=== PATIENT | female | born 2000 | race Caucasian/White ===

== ENCOUNTER 2019-08-23 17:17 | Emergency (ER) | payer MEDICAID ==
[~2019-08-23] VITALS: Ht 160 cm; Wt 70.5 kg
[2019-08-23 17:25] VITALS: TEMP 97.9
[2019-08-23] MEDS ORDERED: NOVOLOG FLEX100 U/ML SQ (17:53)
[2019-08-23 18:02] LABS: COLLECTION METHOD CLEAN CATCH
[2019-08-23 18:09] LABS: PH 6 (5-8); SQUAMOUS EPITHELIAL 0-2 /hpf; URINE APPEARANCE Clear; URINE BACTERIA None Seen /hpf; URINE BILIRUBIN Negative (NEGATIVE); URINE BLOOD Negative (NEGATIVE); URINE COLOR Straw; URINE GLUCOSE 3+ (NEGATIVE); URINE KETONE Negative (NEGATIVE); URINE LEUKOCYTE ESTERASE Negative (NEGATIVE); URINE NITRATE Negative (NEGATIVE); URINE PROTEIN(semi-quant) Negative (NEGATIVE); URINE RBC 0-2 /hpf; URINE UROBILINOGEN Negative (NEGATIVE)
[2019-08-23 18:30] LABS: BASO # 0.1 (0.0-0.2); BASO % 0.5 % (0.0-2.0); EOS # 0.4 (0.0-0.7); EOS % 2.9 % (0-4.0); GRAN # 8.4 (1.4-6.5); GRAN % 57.5 % (42.2-75.2); HEMATOCRIT 41.4 % (35.0-45.0); HEMOGLOBIN 14.5 g/dl (12.0-15.0); LYMPH # 4.9 (1.2-3.4); LYMPH % 33.5 % (20.0-51.0); MEAN CELL VOLUME 90 fl (80.0-95.0); MEAN CORPUSCULAR HEMOGLOBIN 32 pg (26.0-32.0); MEAN CORPUSCULAR HGB CONC 35 g/dl (33.0-37.0); MEAN PLATELET VOLUME 9.9 fl (7.4-10.4); MONO # 0.8 (0.1-0.6); MONO % 5.3 % (1.7-9.3); PLATELET COUNT 333 K/mm3 (130-400); RED BLOOD COUNT 4.61 M/mm3 (4.10-5.30); REDCELL DISTRIBUTION WIDTH-CV 11.9 % (11.5-14.5)
[2019-08-23 18:38] LABS: ALANINE AMINOTRANSFERASE < 6 U/L (9-52); ALBUMIN 4.5 gm/dL (3.5-5.0); ALKALINE PHOSPHATASE 97 U/L (50-136); ANION GAP 13 mmol/L (7-16); AST,SGOT 18 U/L (15-37); BILIRUBIN,TOTAL 0.2 mg/dL (0.0-1.0); BLOOD UREA NITROGEN 14 mg/dL (7-17); C-REACTIVE PROTEIN 1.1 mg/dL (0.0-0.9); CALCIUM 9.9 mg/dL (8.4-10.2); CARBON DIOXIDE 20 mmol/L (22-30); CHLORIDE 100 mmol/L (98-107); CREATININE, serum 0.56 (0.52-1.25); GLUCOSE 385 mg/dL (74-106); LIPASE 47 U/L (23-300); POTASSIUM 4.1 mmol/L (3.4-5.0); SODIUM 134 mmol/L (137-145); TOTAL PROTEIN 8.2 gm/dL (6.4-8.2)
[2019-08-23 22:28] VITALS: BP 115/80; PULSE 101
== END 2019-08-23 22:28 | disposition home or self-care (01) ==
LOC: COL.ER 17:17
PROVIDERS: Physician Assistant
DX: O24.011 Pre-existing type 1 diabetes mellitus, in pregnancy, first trimester (principal); O26.891 Other specified pregnancy related conditions, first trimester; O02.81 Inappropriate change in quantitative human chorionic gonadotropin (hCG) in early pregnancy; O99.331 Smoking (tobacco) complicating pregnancy, first trimester; E10.65 Type 1 diabetes mellitus with hyperglycemia; R10.9 Unspecified abdominal pain; F17.290 Nicotine dependence, other tobacco product, uncomplicated; Z3A.00 Weeks of gestation of pregnancy not specified
CPT/HCPCS: J7030

== ENCOUNTER 2019-10-20 10:49 | Emergency (ER) | payer MEDICAID ==
[~2019-10-20] VITALS: Ht 160 cm; Wt 72.7 kg
[~2019-10-20 10:49] MED LIST: NOVOLOG FLEX100 U/ML SQ
[2019-10-20 11:07] VITALS: TEMP 98.5
[2019-10-20 13:17] LABS: BASO % 0.2 % (0.0-2.0); EOS # 0.2 (0.0-0.7); EOS % 1.3 % (0-4.0); GRAN # 8.8 (1.4-6.5); GRAN % 72.1 % (42.2-75.2); HEMOGLOBIN 12.3 g/dl (12.0-15.0); LYMPH # 2.7 (1.2-3.4); LYMPH % 21.7 % (20.0-51.0); MEAN CELL VOLUME 92 fl (80.0-95.0); MEAN CORPUSCULAR HEMOGLOBIN 31 pg (26.0-32.0); MEAN CORPUSCULAR HGB CONC 34 g/dl (33.0-37.0); MEAN PLATELET VOLUME 10.1 fl (7.4-10.4); MONO # 0.5 (0.1-0.6); MONO % 4.3 % (1.7-9.3); PLATELET COUNT 235 K/mm3 (130-400); RED BLOOD COUNT 3.93 M/mm3 (4.10-5.30); REDCELL DISTRIBUTION WIDTH-CV 11.9 % (11.5-14.5)
[2019-10-20 13:19] LABS: HEMATOCRIT 36.1 % (35.0-45.0)
[2019-10-20 13:50] LABS: ACETONE,SERUM NEGATIVE
[2019-10-20 13:56] LABS: ALANINE AMINOTRANSFERASE 12 U/L (9-52); ALBUMIN 3.5 gm/dL (3.5-5.0); ALKALINE PHOSPHATASE 48 U/L (50-136); ANION GAP 7 mmol/L (7-16); AST,SGOT 15 U/L (15-37); BILIRUBIN,TOTAL 0.2 mg/dL (0.0-1.0); BLOOD UREA NITROGEN 11 mg/dL (7-17); C-REACTIVE PROTEIN 1.4 mg/dL (0.0-0.9); CALCIUM 8.3 mg/dL (8.4-10.2); CARBON DIOXIDE 23 mmol/L (22-30); CHLORIDE 106 mmol/L (98-107); CREATININE, serum 0.51 (0.52-1.25); GLUCOSE 134 mg/dL (74-106); POTASSIUM 3.8 mmol/L (3.4-5.0); SODIUM 136 mmol/L (137-145); TOTAL PROTEIN 6.4 gm/dL (6.4-8.2)
[2019-10-20 14:25] LABS: COLLECTION METHOD CLEAN CATCH
[2019-10-20 14:36] LABS: PH 7 (5-8); URINE APPEARANCE Clear; URINE BACTERIA Rare /hpf; URINE BILIRUBIN Negative (NEGATIVE); URINE BLOOD Negative (NEGATIVE); URINE COLOR Yellow; URINE GLUCOSE 2+ (NEGATIVE); URINE KETONE 1+ (NEGATIVE); URINE LEUKOCYTE ESTERASE Negative (NEGATIVE); URINE NITRATE Negative (NEGATIVE); URINE PROTEIN(semi-quant) Negative (NEGATIVE); URINE UROBILINOGEN Negative (NEGATIVE)
[2019-10-20] MEDS ORDERED: PROMETHAZINE12.5 M5 PO (14:52)
[2019-10-20 15:20] VITALS: BP 111/61; PULSE 82
== END 2019-10-20 15:23 | disposition home or self-care (01) ==
LOC: COL.ER 10:49
PROVIDERS: Physician Assistant
DX: O21.0 Mild hyperemesis gravidarum (principal); O24.011 Pre-existing type 1 diabetes mellitus, in pregnancy, first trimester; Z3A.12 12 weeks gestation of pregnancy
CPT/HCPCS: J2405; J7030

== ENCOUNTER → 2019-11-09 | Outpatient (CLI) | payer MEDICAID ==
[~2019-11-09] MED LIST changes: +PROMETHAZINE12.5 M5 PO
== END ==
LOC: DIA.ED 08:39
DX: O24.419 Gestational diabetes mellitus in pregnancy, unspecified control (principal)
CPT/HCPCS: G0108

== ENCOUNTER → 2019-11-18 | Outpatient (CLI) | payer MEDICAID | LOC: DIA.ED 13:34 | DX: O24.419 Gestational diabetes mellitus in pregnancy, unspecified control (principal); Z79.4 Long term (current) use of insulin; E03.9 Hypothyroidism, unspecified | CPT/HCPCS: G0108 ==

== ENCOUNTER 2020-03-13 03:12 | Outpatient (CLI) | payer MEDICAID ==
[~2020-03-13] VITALS: Ht 160 cm; Wt 75.0 kg
--- NOTE | 2020-03-13 00:34 | NUR ---
0345 STATES HAS NOT HAD PAIN IN LOWER ABD SINCE ARRIVAL BUT HAS OCC IRREGULAR CONTRACTIONS. SVE 0/0/-2. 0350 ROLES NOTIFIED OF ADM ASSESSMENT, COMPLAINT AND BLOOD SUGARS. 0410 HOME WITH INSTRUCTIONS.
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
[2020-03-13 03:15] VITALS: BP 119/69; PULSE 100; TEMP 98.3
[2020-03-13] MEDS ORDERED: HUMALOG100 U/ML (03:21)
[2020-03-13] MEDS ORDERED: ZOFRAN 4MG T4 MG/TAB PO (03:22)
[2020-03-13 03:23] VITALS: BP 119/69; PULSE 100; TEMP 98.3
== END 2020-03-13 04:10 | disposition home or self-care (01) ==
LOC: LDRO 03:12
DX: O24.013 Pre-existing type 1 diabetes mellitus, in pregnancy, third trimester (principal); O26.893 Other specified pregnancy related conditions, third trimester; E10.9 Type 1 diabetes mellitus without complications; Z96.41 Presence of insulin pump (external) (internal); Z3A.32 32 weeks gestation of pregnancy; R10.9 Unspecified abdominal pain; Z86.14 Personal history of Methicillin resistant Staphylococcus aureus infection

== ENCOUNTER 2020-03-28 17:10 | Outpatient (CLI) | payer MEDICAID ==
[~2020-03-28] VITALS: Ht 167.6 cm; Wt 75.0 kg
[~2020-03-28 17:10] MED LIST changes: +HUMALOG100 U/ML; +ZOFRAN 4MG T4 MG/TAB PO
[2020-03-28 17:21] VITALS: BP 117/73; PULSE 90; TEMP 98.4
[2020-03-28] MEDS ORDERED: TYLENOL 500MG500 MG PO (18:04)
[2020-03-28] MEDS ORDERED: PEPCID 20MG TAB20 MG PO (18:05)
[2020-03-28 18:15] VITALS: BP 108/68; PULSE 89
--- NOTE | 2020-03-28 18:15 | NUR ---
1735- Pt escorted from ED check-in by this RN, Pt ambulatory to unit with Boyfriend. 1738- Pt into bed, EFM and TOCO on and tracing. VSS. Pt states she has not been able to eat, very nauseous, has vomited once today. Pt also states baby is not moving normally for her, she did feel baby move on the way to the hospital. Denies VB, LOF, [facility]. 1805- IV start, labs drawn. IVF bolus started per MD order.
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
[2020-03-28 18:29] LABS: BASO % 0.3 % (0.0-2.0); EOS # 0.2 (0.0-0.7); EOS % 1.9 % (0-4.0); GRAN # 7.4 (1.4-6.5); GRAN % 65.8 % (42.2-75.2); LYMPH # 2.7 (1.2-3.4); MEAN CELL VOLUME 87 fl (80.0-95.0); MEAN CORPUSCULAR HEMOGLOBIN 29 pg (26.0-32.0); MEAN CORPUSCULAR HGB CONC 33 g/dl (33.0-37.0); MEAN PLATELET VOLUME 10.6 fl (7.4-10.4); MONO # 0.8 (0.1-0.6); MONO % 7.3 % (1.7-9.3); PLATELET COUNT 244 K/mm3 (130-400); RED BLOOD COUNT 3.82 M/mm3 (4.10-5.30); REDCELL DISTRIBUTION WIDTH-CV 12.6 % (11.5-14.5)
[2020-03-28 18:41] LABS: ALBUMIN 3.3 gm/dL (3.5-5.0); BILIRUBIN,TOTAL 0.5 mg/dL (0.0-1.0); CALCIUM 9.1 mg/dL (8.4-10.2); CREATININE, serum 0.6 (0.52-1.25); POTASSIUM 3.8 mmol/L (3.4-5.0); TOTAL PROTEIN 6.7 gm/dL (6.4-8.2)
[2020-03-28 18:45] VITALS: BP 108/63; PULSE 90
[2020-03-28 19:15] VITALS: BP 120/84; PULSE 80
--- NOTE | 2020-03-28 19:18 | NUR ---
Difficulty tracing FHR due to maternal position. Pt sitting up eating dinner. 1929: called and updated on pts status See physican notification. Discharge orders received. 1944: Discharge instructions given to pt and significant other. Questions answered. Pt ambulatory off unit and home with significant other.
[2020-03-28 19:25] VITALS: BP 113/72; PULSE 76
[2020-03-28 19:30] LABS: HEMATOCRIT 33.2 % (35.0-45.0)
== END 2020-03-28 19:45 | disposition home or self-care (01) ==
LOC: LDRO 17:10
PROVIDERS: Obstetrics & Gynecology
DX: O24.013 Pre-existing type 1 diabetes mellitus, in pregnancy, third trimester (principal); E10.9 Type 1 diabetes mellitus without complications; Z3A.34 34 weeks gestation of pregnancy; Z86.14 Personal history of Methicillin resistant Staphylococcus aureus infection; Z87.891 Personal history of nicotine dependence; Z96.41 Presence of insulin pump (external) (internal)
CPT/HCPCS: J7030

== ENCOUNTER 2020-04-05 02:14 | Outpatient (CLI) | payer MEDICAID ==
[~2020-04-05] VITALS: Ht 160 cm; Wt 76.8 kg
--- NOTE | 2020-04-05 01:45 | NUR ---
Pt arrived on unit via wheelchair, escorted by boyfriend and with complaints of vaginal bleeding starting earlier this evening and contractions every 5 minutes for the last 30 minutes. Pt reports she is unsure if her water broke but reports normal movement. EFM and toco monitors started. Vital signs WNL. SVE by this with negative amnio-trace. Plan of care for labor assessment reviewed with pt and boyfriend at the bedside.
[~2020-04-05 02:14] MED LIST changes: +PEPCID 20MG TAB20 MG PO; +TYLENOL 500MG500 MG PO
[2020-04-05 02:15] VITALS: BP 126/75; PULSE 78; TEMP 97.9
[2020-04-05] MEDS ORDERED: PROMETHAZINE12.5 M5 PO (02:20)
[2020-04-05] MEDS ORDERED: REGLAN 10MG10 MG/TAB PO (02:21)
[2020-04-05] MEDS ORDERED: FLEXERIL 1010 MG/TAB PO (02:22)
[2020-04-05] MEDS ORDERED: VISTARIL50 MG PO (02:22)
--- NOTE | 2020-04-05 04:10 | NUR ---
Discharge instructions reviewed with pt and boyfriend at the bedside. Both verbalized an understanding agreed with the plan and state no questions or concerns at this time.
== END 2020-04-05 04:15 | disposition home or self-care (01) ==
LOC: LDR 02:14 → LDRO 02:14
DX: O62.9 Abnormality of forces of labor, unspecified (principal); O46.93 Antepartum hemorrhage, unspecified, third trimester; O24.013 Pre-existing type 1 diabetes mellitus, in pregnancy, third trimester; E10.9 Type 1 diabetes mellitus without complications; Z3A.35 35 weeks gestation of pregnancy; Z96.41 Presence of insulin pump (external) (internal); Z86.14 Personal history of Methicillin resistant Staphylococcus aureus infection
CPT/HCPCS: OP

== ENCOUNTER 2020-04-06 21:10 | Outpatient (CLI) | payer MEDICAID ==
[~2020-04-06] VITALS: Ht 160 cm; Wt 75.0 kg
--- NOTE | 2020-04-06 21:00 | NUR ---
G1 at 36 weeks arrives to unit with complaint of contractions every 3-4 minutes for the last hour. Pt is a type 1 diabetic with insulin pump and reports blood sugar over 300 for the past 2 hours even after getting 20 units of humalog. Pt denies vaginal bleeding or loss of fluid. Reports good movement. Pt denies other problems this . US and toco explained and applied. Vital signs obtained. Admission assessment started. SVE 3/80/-3, membranes intact, ballotable.
[~2020-04-06 21:10] MED LIST changes: +FLEXERIL 1010 MG/TAB PO; +REGLAN 10MG10 MG/TAB PO; +VISTARIL50 MG PO
[2020-04-06 21:15] VITALS: BP 120/65; PULSE 99; TEMP 98.3
--- NOTE | 2020-04-06 21:40 | NUR ---
18 G IV started in left wrist. Normal saline bolus infusing to gravity. Bedside blood sugar 241.
--- NOTE | 2020-04-06 22:15 | NUR ---
Repeat SVE /-3. Bedside blood sugar 206. Pt reports feeling like contractions have spaced out and are not as strong.
--- NOTE | 2020-04-06 22:40 | NUR ---
Pt discharged home at this time. Discharge instructions reviewed and return precautions explained, pt verbalized understanding. Pt seen ambulating off unit with significant other.
== END 2020-04-06 22:40 | disposition home or self-care (01) ==
LOC: LDR 21:10 → OB 21:10 → LDRO 21:10 → LDR 21:10 → LDRO 22:40 → LDR 22:40
DX: O62.9 Abnormality of forces of labor, unspecified (principal); Z3A.36 36 weeks gestation of pregnancy
CPT/HCPCS: J7030

== ENCOUNTER → 2020-04-07 | Outpatient (CLI) | payer MEDICAID | LOC: COL.LAB 09:30 | DX: Z20.828 Contact with and (suspected) exposure to other viral communicable diseases (principal) ==

== ENCOUNTER 2020-04-13 07:26 | Inpatient (IN) | payer MEDICAID ==
[2020-04-13] VITALS (41 sets, daily range): BP systolic 110–160; BP diastolic 61–100; PULSE 53–95; TEMP 97.4–98.2
[~2020-04-13] VITALS: Ht 160 cm; Wt 75.0 kg
--- NOTE | 2020-04-13 07:36 | NUR ---
Pt arrives on unit ambulatory with FOB for IOL. G1L0 at 37 weeks gestation for T1DM. Changed into clean gown. EFM and toco applied. VSS. Admission assessment completed. Denies vaginal bleeding, LOF, regular ctx and reports GFM. Updated on POC. Oriented to room. Bed locked in low position. Call light within reach. No questions or concerns at this time.
[2020-04-13 09:27] LABS: COLLECTION METHOD CLEAN CATCH
[2020-04-13 09:35] LABS: BASO % 0.3 % (0.0-2.0); EOS # 0.2 (0.0-0.7); EOS % 1.6 % (0-4.0); GRAN # 7.1 (1.4-6.5); GRAN % 57.1 % (42.2-75.2); HEMOGLOBIN 11.1 g/dl (12.0-15.0); LYMPH % 32.3 % (20.0-51.0); MEAN CELL VOLUME 86 fl (80.0-95.0); MEAN CORPUSCULAR HEMOGLOBIN 28 pg (26.0-32.0); MEAN CORPUSCULAR HGB CONC 33 g/dl (33.0-37.0); MEAN PLATELET VOLUME 10.7 fl (7.4-10.4); MONO % 7.9 % (1.7-9.3); PLATELET COUNT 237 K/mm3 (130-400); RED BLOOD COUNT 3.98 M/mm3 (4.10-5.30); REDCELL DISTRIBUTION WIDTH-CV 13.2 % (11.5-14.5)
[2020-04-13 09:39] LABS: MUCOUS Present /lpf; PH 6 (5-8); URINE APPEARANCE Hazy; URINE BACTERIA Rare /hpf; URINE BILIRUBIN Negative (NEGATIVE); URINE BLOOD Negative (NEGATIVE); URINE COLOR Yellow; URINE GLUCOSE Negative (NEGATIVE); URINE KETONE Negative (NEGATIVE); URINE LEUKOCYTE ESTERASE Trace (NEGATIVE); URINE NITRATE Negative (NEGATIVE); URINE PROTEIN(semi-quant) 1+ (NEGATIVE); URINE RBC 0-2 /hpf; URINE UROBILINOGEN Negative (NEGATIVE); URINE WBC 20-50 /hpf
[2020-04-13 09:43] LABS: HEMATOCRIT 34.1 % (35.0-45.0)
[2020-04-13 09:45] LABS: ALBUMIN 3.3 gm/dL (3.5-5.0); BILIRUBIN,TOTAL 0.6 mg/dL (0.0-1.0); CALCIUM 8.7 mg/dL (8.4-10.2); CREATININE, serum 0.66 (0.52-1.25); POTASSIUM 4.3 mmol/L (3.4-5.0); TOTAL PROTEIN 6.5 gm/dL (6.4-8.2)
[2020-04-13 10:21] LABS: TRICYCLIC ANTIDEPRESS URINE NEGATIVE
--- NOTE | 2020-04-13 12:44 | NUR ---
Dr. Kauffman on unit. Reviews FHR strip. No new orders at this time.
--- NOTE | 2020-04-13 14:40 | NUR ---
RN at bedside. N/V present. Difficulty tracing FHR. SVE per this RN . FHR returns to baseline.
--- NOTE | 2020-04-13 16:35 | NUR ---
SVE per this RN /0. Provider notified. Will begin pushing. Dr. Kauffman available for delivery. 1643-Moves vertex well. Dr. Kauffman requested to unit for delivery. 1700-Dr. Kauffman on unit. Begins pushing with patient. 1720-Dr. Kauffman discusses VAVD. Pt agrees to POC. Begins pushing with vacuum. 1734-First pop off noted. 1739-VAVD attended by Dr. Kauffman. MLE Nuchal cord x 2. Cord clamped x 2 and cut from umbilicus. dried and placed on mother's abdomen. Care of to Bridgett Batista RN. Apgars 4/8/9. 1746- of placenta. Pitocin bolus infusing per protocol. Bleeding WNL. Funudus firm at umbilicus. Second degree laceration and MLE repaired per provider. Pericare performed. Ice pack applied. Pt updated on POC. Bed locked in low position. Call light within reach. No questions or concerns.
--- NOTE | 2020-04-13 23:25 | NUR ---
Blood sugar 165 by patients own continuous glucose monitor.
[2020-04-14 01:00] VITALS: BP 125/86; PULSE 80; TEMP 98.1
[2020-04-14 05:10] VITALS: BP 125/83; PULSE 88; TEMP 98.5
[2020-04-14 08:20] VITALS: BP 119/73; PULSE 88; TEMP 98.2
--- NOTE | 2020-04-14 08:22 | NUR ---
BLOOD SUGAR 115 PER PTS MONITOR.
[2020-04-14] MEDS ORDERED: IBU600 MG PO (09:27)
--- NOTE | 2020-04-14 10:17 | NUR ---
Initial visit; Parents thanked Rat Culturist for offering congratulations and God's blessings to their family for the of their daughter. Rat Culturist thanked family for choosing [place].
--- NOTE | 2020-04-14 11:47 | NUR ---
1037- Blood sugar 70, Pt requests orage juice. 1147- Blood sugar 91, Pt states feeling better.
[2020-04-14 12:40] VITALS: BP 117/65; PULSE 78; TEMP 98.1
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
[2020-04-14 16:45] VITALS: BP 125/73; PULSE 72; TEMP 98.1
[2020-04-14 19:30] VITALS: BP 108/57; PULSE 74; TEMP 98.9
--- NOTE | 2020-04-14 19:30 | NUR ---
Pt resting, awakened when nurse comes into room. Upon inquiry about blood sugar, pt checks her device and reports "It's 171, that's pretty normal for me."
[2020-04-15 08:00] VITALS: BP 133/77; PULSE 71; TEMP 97.9
--- NOTE | 2020-04-15 08:00 | NUR ---
Rests in bed, alert. Denies any discomfort or needs at this time. States feeling tired. This nurse asked about blood sugar, states 120 this morning.
--- NOTE | 2020-04-15 16:00 | NUR ---
1630 Rests in bed, alert. Instructions for border status given. Verbalizes understanding. Dismissed to border status.
--- NOTE | 2020-04-19 11:56 | NUR ---
Patient's infant's cord blood was negative for illegal drugs in system.
== END 2020-04-15 16:30 | disposition home or self-care (01) | DRG 807 ==
LOC: OB 07:26 → LDR 07:26 → OB 10:36
PROVIDERS: ADMIT Obstetrics & Gynecology
PROC: 10D07Z6 Extraction of Products of Conception, Vacuum, Via Natural or Artificial Opening (ICD-10-PCS; principal; 2020-04-13)
PROC: 0W8NXZZ Division of Female Perineum, External Approach (ICD-10-PCS; 2020-04-13)
PROC: 10907ZC Drainage of Amniotic Fluid, Therapeutic from Products of Conception, Via Natural or Artificial Opening (ICD-10-PCS; 2020-04-13)
DX: O24.02 Pre-existing type 1 diabetes mellitus, in childbirth (principal); Z37.0 Single live birth; E10.9 Type 1 diabetes mellitus without complications; O99.284 Endocrine, nutritional and metabolic diseases complicating childbirth; O69.81X0 Labor and delivery complicated by cord around neck, without compression, not applicable or unspecified; E03.9 Hypothyroidism, unspecified; Z3A.37 37 weeks gestation of pregnancy
CPT/HCPCS: J2405; J2540; J2590; J7030

== ENCOUNTER 2020-11-02 18:27 | Emergency (ER) | payer MEDICAID ==
[~2020-11-02] VITALS: Ht 160 cm; Wt 60.0 kg
[~2020-11-02 18:27] MED LIST changes: +IBU600 MG PO
[2020-11-02 18:32] VITALS: TEMP 97.8
[2020-11-02 19:05] VITALS: BP 110/71; PULSE 95
== END 2020-11-02 19:05 | disposition home or self-care (01) ==
LOC: COL.ER 18:27
DX: L72.9 Follicular cyst of the skin and subcutaneous tissue, unspecified (principal); Z87.891 Personal history of nicotine dependence; Z79.4 Long term (current) use of insulin

== ENCOUNTER 2020-11-08 20:58 | Emergency (ER) | payer MEDICAID ==
[~2020-11-08] VITALS: Ht 160 cm; Wt 63.6 kg
[2020-11-08 21:04] VITALS: TEMP 97.7
[2020-11-08 21:21] LABS: COLLECTION METHOD CLEAN CATCH
[2020-11-08 21:24] LABS: BASO # 0.1 (0.0-0.2); BASO % 0.5 % (0.0-2.0); EOS # 0.3 (0.0-0.7); EOS % 2.7 % (0-4.0); GRAN # 6.2 (1.4-6.5); HEMATOCRIT 40.7 % (37.0-47.0); LYMPH % 29.3 % (20.0-51.0); MEAN CELL VOLUME 94 fl (80.0-100.0); MEAN CORPUSCULAR HEMOGLOBIN 32 pg (27.0-31.0); MEAN CORPUSCULAR HGB CONC 34 g/dl (33.0-37.0); MEAN PLATELET VOLUME 9.3 fl (7.4-10.4); MONO # 0.6 (0.1-0.6); MONO % 5.9 % (1.7-9.3); PLATELET COUNT 352 K/mm3 (130-400); RED BLOOD COUNT 4.33 M/mm3 (4.10-5.30); REDCELL DISTRIBUTION WIDTH-CV 12.7 % (11.5-14.5)
[2020-11-08 21:34] LABS: PH 6 (5-8); URINE APPEARANCE Hazy; URINE BACTERIA Rare /hpf; URINE BILIRUBIN Negative (NEGATIVE); URINE BLOOD Negative (NEGATIVE); URINE COLOR Straw; URINE GLUCOSE 3+ (NEGATIVE); URINE KETONE Trace (NEGATIVE); URINE LEUKOCYTE ESTERASE Trace (NEGATIVE); URINE NITRATE Negative (NEGATIVE); URINE PROTEIN(semi-quant) Negative (NEGATIVE); URINE RBC None Seen /hpf; URINE UROBILINOGEN Negative (NEGATIVE)
[2020-11-08 21:38] LABS: ALBUMIN 4.2 gm/dL (3.5-5.0); BILIRUBIN,TOTAL 0.4 mg/dL (0.0-1.0); CALCIUM 9.2 mg/dL (8.4-10.2); CREATININE, serum 0.52 (0.52-1.25); POTASSIUM 4.7 mmol/L (3.4-5.0); TOTAL PROTEIN 7.2 gm/dL (6.4-8.2)
[2020-11-08] MEDS ORDERED: LEVEMIR FLEX100 U/ML SQ (22:11)
[2020-11-09 00:40] VITALS: BP 111/78; PULSE 92
== END 2020-11-09 00:45 | disposition home or self-care (01) ==
LOC: COL.ER 20:58
PROVIDERS: Nurse Practitioner
DX: O20.0 Threatened abortion (principal); O24.414 Gestational diabetes mellitus in pregnancy, insulin controlled; Z3A.00 Weeks of gestation of pregnancy not specified; Z79.4 Long term (current) use of insulin
CPT/HCPCS: J1815; J7030

== ENCOUNTER 2020-12-13 18:52 | Emergency (ER) | payer MEDICAID ==
[~2020-12-13] VITALS: Ht 160 cm; Wt 59.1 kg
[~2020-12-13 18:52] MED LIST changes: +LEVEMIR FLEX100 U/ML SQ
[2020-12-13 19:27] LABS: BASO % 0.2 % (0.0-2.0); EOS # 0.3 (0.0-0.7); EOS % 2.7 % (0-4.0); GRAN # 7.8 (1.4-6.5); GRAN % 84.3 % (42.2-75.2); HEMATOCRIT 42.2 % (37.0-47.0); HEMOGLOBIN 14.6 g/dl (12.5-16.0); LYMPH # 0.8 (1.2-3.4); LYMPH % 8.8 % (20.0-51.0); MEAN CELL VOLUME 93 fl (80.0-100.0); MEAN CORPUSCULAR HEMOGLOBIN 32 pg (27.0-31.0); MEAN CORPUSCULAR HGB CONC 35 g/dl (33.0-37.0); MONO # 0.3 (0.1-0.6); MONO % 3.7 % (1.7-9.3); PLATELET COUNT 324 K/mm3 (130-400); RED BLOOD COUNT 4.53 M/mm3 (4.10-5.30); REDCELL DISTRIBUTION WIDTH-CV 11.9 % (11.5-14.5)
[2020-12-13 19:40] LABS: ALANINE AMINOTRANSFERASE 77 U/L (4-34); ALBUMIN 4.3 gm/dL (3.5-5.0); ALKALINE PHOSPHATASE 152 U/L (50-136); ANION GAP 11 mmol/L (7-16); AST,SGOT 75 U/L (15-37); BILIRUBIN,TOTAL 0.5 mg/dL (0.0-1.0); BLOOD UREA NITROGEN 14 mg/dL (7-17); CALCIUM 9.3 mg/dL (8.4-10.2); CARBON DIOXIDE 26 mmol/L (22-30); CHLORIDE 101 mmol/L (98-107); CREATININE, serum 0.59 (0.52-1.25); GLUCOSE 126 mg/dL (74-106); LIPASE 76 U/L (23-300); POTASSIUM 4.2 mmol/L (3.4-5.0); SODIUM 138 mmol/L (137-145); TOTAL PROTEIN 8.1 gm/dL (6.4-8.2)
[2020-12-13 19:52] LABS: ACETONE,SERUM NEGATIVE
[2020-12-13 20:18] LABS: COLLECTION METHOD CLEAN CATCH
[2020-12-13 20:26] LABS: MUCOUS Present /lpf; PH 7 (5-8); URINE APPEARANCE Hazy; URINE BACTERIA None Seen /hpf; URINE BILIRUBIN Negative (NEGATIVE); URINE BLOOD Negative (NEGATIVE); URINE COLOR Yellow; URINE GLUCOSE Negative (NEGATIVE); URINE KETONE Trace (NEGATIVE); URINE LEUKOCYTE ESTERASE Negative (NEGATIVE); URINE NITRATE Negative (NEGATIVE); URINE PROTEIN(semi-quant) Negative (NEGATIVE); URINE RBC 0-2 /hpf; URINE UROBILINOGEN Negative (NEGATIVE)
[2020-12-13 22:54] VITALS: BP 121/74; PULSE 99; TEMP 99.3
[2021-06-03] MEDS ORDERED: NOVOLIN R100 U/ML SQ (09:23)
[2021-06-03] MEDS ORDERED: NOVOLOG 100U100 U/M1 SQ (09:27)
[2021-06-03] MEDS ORDERED: LEVEMIR100 U/ML SQ (09:30)
== END 2020-12-13 22:54 | disposition home or self-care (01) ==
LOC: COL.ER 18:52
PROVIDERS: Emergency Medicine
DX: E86.0 Dehydration (principal); R50.9 Fever, unspecified; E10.9 Type 1 diabetes mellitus without complications; J06.9 Acute upper respiratory infection, unspecified; Z79.4 Long term (current) use of insulin; Z20.822 Contact with and (suspected) exposure to COVID-19
CPT/HCPCS: J7030

== ENCOUNTER 2021-08-14 22:08 | Emergency (ER) | payer MEDICAID ==
[~2021-08-14] VITALS: Ht 160 cm; Wt 65.9 kg
[~2021-08-14 22:08] MED LIST changes: +LEVEMIR100 U/ML SQ; +NOVOLIN R100 U/ML SQ; +NOVOLOG 100U100 U/M1 SQ
[2021-08-14 22:13] VITALS: TEMP 98.1
[2021-08-14] MEDS ORDERED: BACTRIM DS 8001 TAB PO (23:59)
[2021-08-14] MEDS ORDERED: CEPHALEXIN500 M1 PO (23:59)
[2021-08-15 00:40] VITALS: BP 100/59; PULSE 85
== END 2021-08-15 00:40 | disposition home or self-care (01) ==
LOC: COL.ER 22:08
DX: Z48.03 Encounter for change or removal of drains (principal); E11.10 Type 2 diabetes mellitus with ketoacidosis without coma; Z79.4 Long term (current) use of insulin
CPT/HCPCS: J0696

== ENCOUNTER 2024-01-20 13:45 | Inpatient (IN) | payer MEDICAID ==
[~2024-01-20] VITALS: Ht 160 cm; Wt 66.0 kg
[2024-01-20] VITALS (96 sets, daily range): BP systolic 118–129; BP diastolic 76–88; PULSE 115–125; TEMP 98.1–98.3; O2SAT 98–100
[~2024-01-20 13:45] MED LIST changes: +B-D SAFETY GLID1 DE1 SQ; +BACTRIM DS 8001 TAB PO; +CEPHALEXIN500 M1 PO; +DOXYCYCLINE 10100 MG PO; +FLAGYL500 MG PO; +FREESTYLE PREC1 EAC5 MC; +GLUCOSE TEST ST1 DEV MC; +INSULIN LI100 UNIT/1 SQ; +NOVLOG SQ
[2024-01-20] MEDS ORDERED: NS 1,000 ML IV ONE (14:15)
[2024-01-20 15:34] LABS: HEMATOCRIT 50.8 % (37.0-47.0); HEMOGLOBIN 17.4 g/dl (12.5-16.0); MEAN CELL VOLUME 95 fl (80.0-100.0); MEAN CORPUSCULAR HEMOGLOBIN 33 pg (27-31); MEAN CORPUSCULAR HGB CONC 34 g/dl (33.0-37.0); MEAN PLATELET VOLUME 8.7 fl (7.4-10.4); PLATELET COUNT 538 K/mm3 (130-400); RED BLOOD COUNT 5.36 M/mm3 (4.10-5.30); REDCELL DISTRIBUTION WIDTH-CV 12.1 % (11.5-14.5)
[2024-01-20 15:56] LABS: ALANINE AMINOTRANSFERASE 91 U/L (0-55); ALBUMIN 3.8 g/dL (3.5-5.0); ALKALINE PHOSPHATASE 333 U/L (40-150); ANION GAP 26 mmol/L (7-16); AST,SGOT 108 U/L (5-34); BILIRUBIN,TOTAL 0.6 mg/dL (0.2-1.2); BLOOD UREA NITROGEN 18 mg/dL (7-19); CALCIUM 11.1 mg/dL (8.4-10.2); CHLORIDE 96 mEq/L (98-107); CREATININE, serum 1.67 mg/dL (0.57-1.11); GLUCOSE 294 mg/dL (70-99); LIPASE 18 U/L (8-78); POTASSIUM 4.1 mEq/L (3.5-4.5); SODIUM 135 mEq/L (136-145); TOTAL PROTEIN 9.9 g/dl (6.2-8.1)
[2024-01-20 15:58] LABS: ACETONE,SERUM MODERATE
[2024-01-20] MEDS ORDERED: Insulin Human Regular/NS 100 ML IV ONE (16:00)
[2024-01-20 16:06] LABS: TROPONIN-I < 0.010 ng/mL (0.00-0.033)
[2024-01-20] MEDS ORDERED: NS & 20 mEq KCl 1,000 ML IV ONE (16:15)
[2024-01-20 16:16] LABS: BAND 1 % (0-10); LYMPHOCYTE 17 % (20.0-51.0); NEUTROPHILS 79 % (42.0-75.2)
[2024-01-20 16:17] LABS: ANISOCYTOSIS 1+; PLATELET ESTIMATE INCREASED (NORMAL)
[2024-01-20] MEDS ORDERED: D5NS 1,000 ML IV SCH (17:00)
[2024-01-20 17:16] LABS: COLLECTION METHOD CLEAN CATCH
[2024-01-20 17:21] LABS: URINE APPEARANCE CLEAR (CLEAR/HAZY); URINE BLOOD NEGATIVE (NEGATIVE); URINE COLOR YELLOW (YELLOW); URINE GLUCOSE 3+ (NEGATIVE); URINE KETONE 4+ (NEGATIVE); URINE NITRATE NEGATIVE (NEGATIVE); URINE PROTEIN(semi-quant) 1+ (NEGATIVE); URINE UROBILINOGEN 0.2 E.U/dL (0.2-1.0)
[2024-01-20 17:34] LABS: MUCOUS PRESENT (NOT PRESENT); SQUAMOUS EPITHELIAL 0-2 /hpf (0-10); URINE BACTERIA OCCASIONAL /hpf (NONE SEEN); URINE RBC 0-2 /hpf (0-2); URINE WBC 0-2 /hpf (0-2)
[2024-01-20] MEDS ORDERED: *Potassium Replacement Protocol MC SCH (18:45)
[2024-01-20] MEDS ORDERED: Insulin Human Regular/NS 100 ML IV SCH (18:45)
[2024-01-20] MEDS ORDERED: oxyCODONE 5 MG TAB PO PRN (21:00)
[2024-01-20] MEDS ORDERED: Morphine 4 MG/ML VIAL IV PRN (21:15)
[2024-01-20 23:22] LABS: CREATININE, serum 1.16 mg/dL (0.57-1.11); POTASSIUM 3.9 mEq/L (3.5-4.5)
[2024-01-21] VITALS (313 sets, daily range): BP systolic 107–162; BP diastolic 69–84; PULSE 98–110; TEMP 98–98.7; O2SAT 93–100
[2024-01-21 05:29] LABS: HEMATOCRIT 38.4 % (37.0-47.0); MEAN CELL VOLUME 96 fl (80.0-100.0); MEAN CORPUSCULAR HGB CONC 34 g/dl (33.0-37.0); MEAN PLATELET VOLUME 8.7 fl (7.4-10.4); REDCELL DISTRIBUTION WIDTH-CV 11.9 % (11.5-14.5)
[2024-01-21 05:39] LABS: MEAN CORPUSCULAR HEMOGLOBIN 33 pg (27-31); PLATELET COUNT 342 K/mm3 (130-400)
[2024-01-21 05:47] LABS: ALBUMIN 2.5 g/dL (3.5-5.0); CALCIUM 8.9 mg/dL (8.4-10.2); CREATININE, serum 1.05 mg/dL (0.57-1.11); MAGNESIUM 1.6 mg/dL (1.6-2.6); PHOSPHOROUS 2.6 mg/dL (2.3-4.7); POTASSIUM 3.8 mEq/L (3.5-4.5)
[2024-01-21 06:30] LABS: BAND 13 % (0-10); EOSINOPHIL 1 % (0-4); LYMPHOCYTE 22 % (20.0-51.0); NEUTROPHILS 53 % (42.0-75.2); PLATELET ESTIMATE NORMAL (NORMAL)
--- NOTE | 2024-01-21 07:00 | NUR ---
REPORT RECEIVED FROM SCOTT JUAREZ. PT RESTING IN BED, VSS. PT ALERT AND ORIENTED, DENIES PAIN OR NAUSEA. DRIPS INFUSING TO PERIPHERAL IVS IN BILATERAL FOREARMS ORDERED, SEE TITRATION FLOWSHEET/EMAR. PT DENIES NEEDS AT THIS TIME, CALL LIGHT IN REACH.
[2024-01-21] MEDS ORDERED: Glucagon 1 MG VIAL IM PRN (07:45)
[2024-01-21] MEDS ORDERED: Dextrose 50% Water 25 GM/50 ML SYRINGE IV PRN (07:45)
[2024-01-21] MEDS ORDERED: Dextrose (Glucose) 15 GM (4 x 3.75 GM) Chewable TABLET PACK PO PRN (07:45)
[2024-01-21 08:44] LABS: CALCIUM 8.5 mg/dL (8.4-10.2); CREATININE, serum 0.92 mg/dL (0.57-1.11); POTASSIUM 3.7 mEq/L (3.5-4.5)
[2024-01-21] MEDS ORDERED: Insulin Glargine-ygfn (Lantus) SQ SCH (09:00)
[2024-01-21] MEDS ORDERED: NS 1,000 ML IV SCH (09:15)
[2024-01-21] MEDS ORDERED: Potassium Bicarbonate/Citrate 20 MEQ Effervescent TAB PO SCH (09:30)
[2024-01-21] MEDS ORDERED: Magnesium Sulfate 2 GM/50 ML IV SOLN IV SCH (09:30)
[2024-01-21] MEDS ORDERED: Insulin Lispro (HumaLOG) SQ SCH (12:00)
--- NOTE | 2024-01-21 13:18 | NUR ---
viscose cellar worker met with patient and her significant other, Eben, P# [phone]. Patient reports not having a PCP, MARIO provided the list of options in [place]. Patient reports pharmacy is either [facility]. SW asked about insulin at home. Patient reports she was running low and would need to refill it soon. SW asked if she has any concerns about affording medications she stated she normally can afford them. No DPOA-HC and not interested in completing one at this time. No DME and reports to be independent with ADLS. Patient reports she has a child but they live with the child's father. Eben transports patient to and from appointments. 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 MARIO also provided [facility] Resource Guide, Mental Health Resources and local community resources. Yessenia would like to return home at time of discharge. Discharge plan: Home
[2024-01-21] MEDS ORDERED: Insulin Glargine-ygfn (Lantus) SQ ONE (14:30)
[2024-01-21] MEDS ORDERED: Acetaminophen 325 MG TAB PO PRN (16:45)
[2024-01-21] MEDS ORDERED: Ondansetron 4 MG/2 ML VIAL IV PRN (16:45)
--- NOTE | 2024-01-21 17:30 | NUR ---
PT ON THE FLOOR FROM ICU. VITALS STABLE. PT ORIENTED TO ROOM. PT INDEPENDENT IN ROOM AND DENIES NEEDS AT THIS TIME. INT TO RIGHT AND LEFT FOREARM PATENT. WOUNDS TO RIGHT THIGH AND LEFT SHOULDER COVERED WITH DRESSING. PER ICU REPORT DRESSING CHANGES DONE BEFORE TRANSFER. BED IN LOWEST POSITION, CALL LIGHT IN REACH.
[2024-01-21 19:11] LABS: CALCIUM 8.6 mg/dL (8.4-10.2); CREATININE, serum 0.86 mg/dL (0.57-1.11); POTASSIUM 3.9 mEq/L (3.5-4.5)
--- NOTE | 2024-01-21 23:35 | NUR ---
Shift assessment complete. Currently reporting pain in her right thigh which she rates 5/10. Resting in bed watching TV upon entering room. Denies any chest pain, nausea, shortness of breath. Call light is within reach. Bed locked and in low position.
[2024-01-22] VITALS (10 sets, daily range): BP systolic 99–114; BP diastolic 62–79; PULSE 95–110; TEMP 97.9–99.1
[2024-01-22 06:42] LABS: BASO # 0.1 K/mm3 (0.0-0.2); BASO % 0.6 % (0.0-2.0); EOS # 0.2 K/mm3 (0.0-0.7); EOS % 1.5 % (0.0-4.0); GRAN # 7.7 K/mm3 (1.4-6.5); GRAN % 66.9 % (42.2-75.2); HEMOGLOBIN 12.5 g/dl (12.5-16.0); LYMPH # 2.4 K/mm3 (1.2-3.4); LYMPH % 21.1 % (20.0-51.0); MEAN CELL VOLUME 95 fl (80.0-100.0); MEAN CORPUSCULAR HEMOGLOBIN 32 pg (27-31); MEAN CORPUSCULAR HGB CONC 34 g/dl (33.0-37.0); MEAN PLATELET VOLUME 8.9 fl (7.4-10.4); MONO # 1.1 K/mm3 (0.1-0.6); MONO % 9.3 % (1.7-9.3); PLATELET COUNT 253 K/mm3 (130-400); RED BLOOD COUNT 3.89 M/mm3 (4.10-5.30); REDCELL DISTRIBUTION WIDTH-CV 11.9 % (11.5-14.5)
[2024-01-22 06:49] LABS: HEMATOCRIT 36.8 % (37.0-47.0)
[2024-01-22 08:12] LABS: ALBUMIN 2.3 g/dL (3.5-5.0); CALCIUM 8.7 mg/dL (8.4-10.2); CREATININE, serum 0.78 mg/dL (0.57-1.11); MAGNESIUM 1.8 mg/dL (1.6-2.6); PHOSPHOROUS 3.1 mg/dL (2.3-4.7); POTASSIUM 4.3 mEq/L (3.5-4.5)
--- NOTE | 2024-01-22 08:21 | NUR ---
DR VLILALPANDO CALLED FOR CONSULT, NO NEW ORDERS AT THIS TIME. WILL CONTINUE TO MONITOR.
[2024-01-22] MEDS ORDERED: Insulin Glargine-ygfn (Lantus) SQ SCH (09:00)
--- NOTE | 2024-01-22 10:00 | NUR ---
PT RESTING IN BED AFTER DEBREIDMENT OF LEFT UPPER ARM WOUND BY DR DE LA CRUZ. PT RATING PAIN 10/10 IN LEFT UPPER ARM AND PAIN MEDICATION PROVIDED PER EMAR. STEADY GAIT AROUND ROOM AND DRESSINGS TO LEFT UPPER ARM AND RIGHT THIGH CLEAN AND DRY. TOLERATING DIET WELL, WILL CONTINUE TO MONITOR.
[2024-01-22] MEDS ORDERED: Insulin Lispro (HumaLOG) SQ SCH (12:00)
--- NOTE | 2024-01-22 12:09 | NUR ---
01/22/24: [id number] EDUCATION CONSULT. 23 YO FEMALE WITH TYPE 1 DIABETES ADMITTED FOR DKA. PATIENT REPORTS DIAGNOSIS OF T1DM AT AGE 10. PATIENT HAS HISTORY OF DKA AND MULTIPLE DRUG ABUSES. PATIENT CURRENTLY HAS WOUNDS THAT ARE INFECTED WELL. PATIENT REPORTS SHE TAKES INSULIN "3-4 TIMES PER DAY, DEPENDING ON THE DAY" AT HOME. SHE STATES SHE RECENTLY RAN OUT OF INSULIN BECAUSE SHE HAD NOT BEEN FEELING WELL AND DID NOT PICK IT UP. THIS PATIENT REPORTS SHE DOES NOT DRIVE, SO MUST RELY ON OTHERS TO GET HER PRESCRIPTIONS FOR HER. PATIENT DOES NOT FOLLOW WITH A PCP OR SIGNING AGENT AT THIS TIME. SHE REPORTS ATTEMPTING TO ESTABLISH CARE WITH [facility], HOWEVER SHE COULD NOT GET IN SHE STATES "I DON'T ALWAYS HAVE A WORKING PHONE NUMBER." THIS PATIENT VERBALIZES KNOWLEDGE ABOUT CARBOHYDRATE COUNTING AND IS OBSERVED EATING A NETWORK TECHNOLOGY INSTRUCTOR SALAD WITH [employer] FOR LUNCH DURING MY CONSULT. THIS PATIENT STATES SHE UNDERSTANDS HOW TO MONITOR BLOOD GLUCOSE WELL ADMINISTER INSULIN, AND DENIES NEED FOR ADDITIONAL TEACHING ON THOSE ITEMS. EDUCATIONAL MATERIALS PROVIDED TO THIS PATIENT AND CONTACT CARD PROVIDED SHOULD SHE WISH TO SEE ME AN OUTPATIENT. I EXPLAINED TO THIS PATIENT THAT SHE WOULD NEED A PHYSICIAN'S REFERRAL TO SEE ME OUTPATIENT, SO WHEN SHE ESTABLISHES WITH A PCP SHE CAN REQUEST THAT IF SHE CHOOSES TO DO SO. KML,MS,RD,CSSD,LD
--- NOTE | 2024-01-22 14:17 | NUR ---
Funeral Greeter followed up with patient to discuss primary care. Patient stated she has tried to get set up with [facility] before, however it's been difficult because she "doesn't have a phone number".
--- NOTE | 2024-01-22 22:17 | NUR ---
Shift assessment complete. States she is having some pain in her right thigh which she reports as 7/10 and is requesting something for pain. Denies any nausea, chest pain, shortness of breath. Alert and oriented. Call light is within reach. Bed locked and in low position.
[2024-01-23] VITALS (8 sets, daily range): BP systolic 105–118; BP diastolic 69–82; PULSE 84–101; TEMP 97.6–98.5
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
--- NOTE | 2024-01-23 07:45 | NUR ---
Patient awake in bed, A&Ox4. VSS. IV CDI. Quarter size drainage on RT thigh. Daily dressing change. Pain medication given when requested. Call light within reach
[2024-01-23] MEDS ORDERED: Insulin Glargine-ygfn (Lantus) SQ ONE (09:00)
[2024-01-23 09:10] LABS: HEMOGLOBIN 12.6 g/dl (12.5-16.0); MEAN CELL VOLUME 96 fl (80.0-100.0); MEAN CORPUSCULAR HEMOGLOBIN 33 pg (27-31); MEAN CORPUSCULAR HGB CONC 34 g/dl (33.0-37.0); MEAN PLATELET VOLUME 8.8 fl (7.4-10.4); PLATELET COUNT 280 K/mm3 (130-400); RED BLOOD COUNT 3.87 M/mm3 (4.10-5.30); REDCELL DISTRIBUTION WIDTH-CV 11.7 % (11.5-14.5)
[2024-01-23 09:16] LABS: ALBUMIN 2.2 g/dL (3.5-5.0); CALCIUM 8.9 mg/dL (8.4-10.2); CREATININE, serum 0.8 mg/dL (0.57-1.11); MAGNESIUM 1.8 mg/dL (1.6-2.6); PHOSPHOROUS 3.3 mg/dL (2.3-4.7); POTASSIUM 5.2 mEq/L (3.5-4.5)
--- NOTE | 2024-01-23 09:30 | NUR ---
Critical labs reported to saeed yeh
[2024-01-23 10:11] LABS: BAND 4 % (0-10); EOSINOPHIL 2 % (0-4); LYMPHOCYTE 20 % (20.0-51.0); NEUTROPHILS 70 % (42.0-75.2); PLATELET ESTIMATE NORMAL (NORMAL)
--- NOTE | 2024-01-23 11:55 | NUR ---
Data: Patient accepted Pharmacy General Manager visit offered during Pharmacy General Manager rounds for prayer only. Assessment: Patient desired prayer. Plan of Care: Pharmacy General Manager prayed for healing. Patient thanked Pharmacy General Manager. Chaplains will remain available as needed/requested while Patient is admitted to this hospital.
[2024-01-23] MEDS ORDERED: Insulin Lispro (HumaLOG) SQ SCH (12:00)
--- NOTE | 2024-01-23 20:32 | NUR ---
PATIENT RESTING IN BED. ALERT AND ORIENTED. SHIFT ASSESSMENT COMPLETE. PATIENT DENIES PAIN OR DISCOMFORT. ZOSYN INFUSING PER MAR. IV TO RIGHT FOREARM IS LEAKING. WILL DISCONTINUE SITE. PATIENT DENIES NEEDS OR CONCERNS AT THIS TIME. WILL MONITOR
[2024-01-24] VITALS (9 sets, daily range): BP systolic 103–124; BP diastolic 72–91; PULSE 83–104; TEMP 97.9–99.4
--- NOTE | 2024-01-24 02:51 | NUR ---
PATIENT RESTING WITH EYES CLOSED UPON ARRIVAL OF THIS NURSE. THIS NURSE ADMINISTERED VANCOMYCIN IV PER NOV. PATIENT DENIES NEEDS OR CONCERNS AT THIS TIME.
--- NOTE | 2024-01-24 07:45 | NUR ---
Patient sleeping in bed, Easily awakened with verbal commmand. A&Ox4. VSS. IV CDI. Denies pain and discomfort when sleeping. Wounds CDI, intact. Call light within reach
[2024-01-24 08:02] LABS: HEMATOCRIT 37.9 % (37.0-47.0); HEMOGLOBIN 13.1 g/dl (12.5-16.0); MEAN CELL VOLUME 93 fl (80.0-100.0); MEAN CORPUSCULAR HEMOGLOBIN 32 pg (27-31); MEAN CORPUSCULAR HGB CONC 35 g/dl (33.0-37.0); MEAN PLATELET VOLUME 8.7 fl (7.4-10.4); PLATELET COUNT 341 K/mm3 (130-400); RED BLOOD COUNT 4.06 M/mm3 (4.10-5.30); REDCELL DISTRIBUTION WIDTH-CV 11.6 % (11.5-14.5)
[2024-01-24 08:20] LABS: ALBUMIN 2.4 g/dL (3.5-5.0); CALCIUM 9.4 mg/dL (8.4-10.2); CREATININE, serum 0.81 mg/dL (0.57-1.11); MAGNESIUM 1.9 mg/dL (1.6-2.6); PHOSPHOROUS 3.6 mg/dL (2.3-4.7); POTASSIUM 5.3 mEq/L (3.5-4.5)
[2024-01-24] MEDS ORDERED: Insulin Glargine-ygfn (Lantus) SQ SCH ×2 (09:00→21:00)
[2024-01-24 09:52] LABS: BAND 5 % (0-10); NEUTROPHILS 55 % (42.0-75.2)
[2024-01-24 09:53] LABS: EOSINOPHIL 2 % (0-4); LYMPHOCYTE 33 % (20.0-51.0); PLATELET ESTIMATE NORMAL (NORMAL)
--- NOTE | 2024-01-24 20:45 | NUR ---
Initial shift assessment done- denies pain, denies SOB, will give insulin as ordered tonight--pt given a sandwich and applesauce and was eating well when insulin given, Blood sugar 108 tonight. Watching TV- no requests.
[2024-01-25] VITALS (13 sets, daily range): BP systolic 108–130; BP diastolic 73–92; PULSE 86–95; TEMP 97.6–98.6
--- NOTE | 2024-01-25 04:05 | NUR ---
Awake, has been resting well tonight- states feels ok at this time, denies need for pain meds.
[2024-01-25 07:21] LABS: ALBUMIN 2.4 g/dL (3.5-5.0); CALCIUM 9.2 mg/dL (8.4-10.2); CREATININE, serum 0.75 mg/dL (0.57-1.11); MAGNESIUM 1.9 mg/dL (1.6-2.6); PHOSPHOROUS 3.7 mg/dL (2.3-4.7); POTASSIUM 4.6 mEq/L (3.5-4.5)
--- NOTE | 2024-01-25 08:45 | NUR ---
BILAT FOREARM IV INFILTRATED/NOT FLUSHING. BOTH IV REMOVED. PATIENT IS A HARD STICK. ER CALLED AND WILL SEND NURSE AT A LATER TIME TO HELP PLACE IV AND ASSIST LAB WITH DRAW FOR AM LAB AND DANNIE DRISCOLL.
--- NOTE | 2024-01-25 09:00 | NUR ---
DRESSINGS CHANGED. PATIENT DENIES ANY COMPLAINTS.
--- NOTE | 2024-01-25 09:37 | NUR ---
SW met with patient, to complete intake and discuss discharge planning. Patient was alert in her bed. Patient confirmed that she resides in [place] with her friend (Eben Modi [phone]) she listed his as NOK. Patient reports that she is working on getting established with PCP and was provided list. Patient currently prefers [facility] and/or [facility] as preference. Patient reports that she is independent with ADLs and current DMEs insulin,syrines,glucometer. Patient does not have DPOA on file, was provided information on forms availablity. Discharge plan: home (pending any further medical recommendations or orders)
--- NOTE | 2024-01-25 10:35 | NUR ---
BLACK BELT SUCCESSFUL WITH IV PLACEMENT. LABS DRAWN, AWAITING VANC TROPH RESULTS.
[2024-01-25 10:36] LABS: HEMOGLOBIN 14.2 g/dl (12.5-16.0); MEAN CELL VOLUME 92 fl (80.0-100.0); MEAN CORPUSCULAR HEMOGLOBIN 33 pg (27-31); MEAN CORPUSCULAR HGB CONC 36 g/dl (33.0-37.0); MEAN PLATELET VOLUME 8.2 fl (7.4-10.4); PLATELET COUNT 432 K/mm3 (130-400); RED BLOOD COUNT 4.33 M/mm3 (4.10-5.30); REDCELL DISTRIBUTION WIDTH-CV 11.8 % (11.5-14.5)
[2024-01-25 11:14] LABS: BAND 1 % (0-10); EOSINOPHIL 3 % (0-4); HYPOCHROMIA 1+; LYMPHOCYTE 28 % (20.0-51.0); NEUTROPHILS 65 % (42.0-75.2); PLATELET ESTIMATE INCREASED (NORMAL)
--- NOTE | 2024-01-25 16:47 | NUR ---
NIKO WITH COMPLAINTS OF NAUSEA. IV MEDICATION GIVEN. NIKO NOW SITTING UP IN BED FOR DINNER, PATIENT DENEIS ANY NEEDS OR COMPLAINTS AT THIS TIME CALL LIGHT WITHIN REACH.
--- NOTE | 2024-01-25 19:00 | NUR ---
bedside shift report given to Henrietta CHAVEZ. mauricio asleep, resting in bed. patient appears to be in no acute distress. patients call light within her reach.
--- NOTE | 2024-01-25 20:15 | NUR ---
Initial shift assessment done- states feeling ok, does have some pain to right thigh,,03/02,,, will give Roxicodone as ordered- will give a HS snack with her insulin tonight-want s a sandwich box- given. SCD,s on.
[2024-01-25] MEDS ORDERED: Insulin Glargine-ygfn (Lantus) SQ SCH (21:00)
--- NOTE | 2024-01-25 23:35 | NUR ---
Called for feeling like her blood sugar is low,,,-blood sugar test showed 62,, followed hypoglycemic protocol and 4 glucose tabs given, also wants another sandwich box,, repeat check in 15 minutes was 125, Mayra BECERRA notified-- no new orders
[2024-01-26] VITALS (11 sets, daily range): BP systolic 102–133; BP diastolic 9–92; PULSE 84–92; TEMP 97.5–98.2
--- NOTE | 2024-01-26 05:52 | NUR ---
No requests, states she did get some sleep, VSS, states the Roxixodone given before bed was effective for pain.
--- NOTE | 2024-01-26 07:25 | NUR ---
PATIENT ASLEEP, RESITNG IN BED. PATINET APPEARS TO BE IN NO ACUTE DISTRESS. CALL LIGHT WITHIN REACH.
[2024-01-26 09:16] LABS: HEMATOCRIT 37.7 % (37.0-47.0); HEMOGLOBIN 12.8 g/dl (12.5-16.0); MEAN CELL VOLUME 96 fl (80.0-100.0); MEAN CORPUSCULAR HEMOGLOBIN 33 pg (27-31); MEAN CORPUSCULAR HGB CONC 34 g/dl (33.0-37.0); MEAN PLATELET VOLUME 9.6 fl (7.4-10.4); PLATELET COUNT 426 K/mm3 (130-400); RED BLOOD COUNT 3.92 M/mm3 (4.10-5.30); REDCELL DISTRIBUTION WIDTH-CV 12.1 % (11.5-14.5)
[2024-01-26 11:15] LABS: CALCIUM 9.1 mg/dL (8.4-10.2); CREATININE, serum 0.74 mg/dL (0.57-1.11); POTASSIUM 4.7 mEq/L (3.5-4.5)
[2024-01-26] MEDS ORDERED: Insulin Lispro (HumaLOG) SQ SCH (12:00)
[2024-01-26 12:58] LABS: BAND 3 % (0-10); EOSINOPHIL 2 % (0-4); LYMPHOCYTE 33 % (20.0-51.0); METAMYELOCYTE 2 % (0-0); NEUTROPHILS 51 % (42.0-75.2); NUCLEATED RED BLOOD CELL 1 (0-6); PLATELET ESTIMATE INCREASED (NORMAL)
--- NOTE | 2024-01-26 16:00 | NUR ---
DRESSING TO LEFT UPPRE ARM AND R THIGH CHANGED.
--- NOTE | 2024-01-26 17:30 | NUR ---
PATIENTS CALL LIGHT WITHIN REACH, PATIENT DENIES ANY NEEDS AT THIS TIME.
--- NOTE | 2024-01-26 22:51 | NUR ---
Shift assessment complete. Patient is reporting pain in her right thigh as 4/10. Denies any nausea, chest pain, shortness of breath. Marrero box provided at patient request. Call light is within reach. Bed locked and in low position.
[2024-01-27 00:46] VITALS: BP 124/92; PULSE 89; TEMP 97.8
[2024-01-27 01:26] VITALS: BP_SYST 124
[2024-01-27 05:08] VITALS: BP 117/74; PULSE 86; TEMP 97.8
[2024-01-27 05:29] VITALS: BP_SYST 117
[2024-01-27 08:07] VITALS: BP 109/74; PULSE 87; TEMP 98.1
[2024-01-27 09:40] VITALS: BP_SYST 109
--- NOTE | 2024-01-27 09:40 | NUR ---
PT LAYING IN BED UPON ENTERING. ASSESSMENT DONE, MEDS GIVEN PER ORDER. PT REPORTS 6/10 PAIN TO RIGHT THIGH, PRN ROSELIA GIVEN. WOUNDS TO LEFT UPPER ARM AND RIGHT THIGH, BOTH COVERED WITH MEPILEX CHANGED BY WOUND CARE THIS MORNING. PT DENIES NEEDS AT THIS TIME. PT REPORTS SMALL BREAKFAST PORTIONS AND STILL BEING HUNGRY, GIVEN SUGAR FREE PUDDING AND MARIA C CRACKERS. BED IN LOWEST POSITION, CALL LIGHT IN REACH
[2024-01-27] MEDS ORDERED: DOXYCYCLINE 10100 MG PO (09:44)
[2024-01-27] MEDS ORDERED: LEVEMIR100 U/ML SQ (09:46)
[2024-01-27] MEDS ORDERED: INSULIN LI100 UNIT/1 SQ ×2 (09:47→09:48)
--- NOTE | 2024-01-27 11:53 | NUR ---
Heavy Equipment Plumbing Supervisor met with patient alone with Director Diana Nicholson. Patient sitting up in bed, pleasant and jovial. Patient stating that she has access to her insulin and her friend picks up her medication for her. Patient did ask for clothes for discharge, and stated that she doens't have access to quality food. Resources for free meals, food holliday and Meals on Wheels provided, as well as a bag of personal items and clothing. Patient shared that her friend will pick her up after lunch. Patient voiced feeling safe with her current living situation and voiced no concerns related to returning to live with friend. Discharge plan: Home
--- NOTE | 2024-01-27 12:58 | NUR ---
IV REMOVED AND PT DRESSED IN PERSONAL CLOTHES. PT DENIES NEEDS AND GIVEN INSULIN PER ORDER. DISCHARGE INSTRUCTIONS GIVEN AND FOLLOW UP APPTS INCLUDING SURGERY, WOUND CARE AND PCP AT [facility]. PT EDUCATED ON DISCHARGE MEDS AND AASKED TO REPEAT INSULIN ORDERS, PT ABLE TO ACCURATELY VERBALIZE THIS. PT DENIES NEEDS AND ESCORTED TO PERSONAL VEHICLE VIA WHEELCHAIR BY THIS NURSE.
== END 2024-01-27 13:00 | disposition home or self-care (01) | DRG 871 ==
LOC: COL.ER 13:45 → MEDICAL 16:14 → ICU 16:14 → MEDICAL 01-21 17:39
PROVIDERS: Emergency Medicine; Hospitalist; Internal Medicine; Surgery; ADMIT Internal Medicine
PROC: 0Y9C0ZZ Drainage of Right Upper Leg, Open Approach (ICD-10-PCS; principal; 2024-01-22)
DX: A41.9 Sepsis, unspecified organism (principal); E10.10 Type 1 diabetes mellitus with ketoacidosis without coma; L03.114 Cellulitis of left upper limb; N17.9 Acute kidney failure, unspecified; L02.415 Cutaneous abscess of right lower limb; L02.414 Cutaneous abscess of left upper limb; L03.115 Cellulitis of right lower limb; F15.10 Other stimulant abuse, uncomplicated; F19.10 Other psychoactive substance abuse, uncomplicated; E87.5 Hyperkalemia; B95.62 Methicillin resistant Staphylococcus aureus infection as the cause of diseases classified elsewhere; Z88.2 Allergy status to sulfonamides; Z88.8 Allergy status to other drugs, medicaments and biological substances; Z91.148 Patient's other noncompliance with medication regimen for other reason; Z79.4 Long term (current) use of insulin
CPT/HCPCS: J0737; J1815; J2270; J2405; J2543; J3370; J3475; J3480; J7030; J7042; J7050